=== PATIENT | female | born 1940 | race Caucasian/White ===

== ENCOUNTER 2018-02-19 06:54 | Observation (INO) | payer OTHER ==
[2018-02-19] VITALS (7 sets, daily range): BP systolic 113–142; BP diastolic 56–65
[~2018-02-19] VITALS: Ht 152.4 cm; Wt 63.0 kg
[~2018-02-19 06:54] MED LIST: AMLODIPINE BESY10 MG PO; ATENOLOL50 MG PO; ATORVASTATIN CA20 MG PO; BACITRACIN 50,000 UNIT VIAL ONE; BUSPIRONE HCL5 MG PO; CEFAZOLIN SOD 2 GM/D5W 50ML 50 ML IV ONE; CELECOXIB 200 MG CAP ONE; CITALOPRAM HBR20 MG PO; DEXAMETHASONE SOD PHOS 10 MG/1 ML VIAL ONE; GABAPENTIN 300 MG CAP ONE; GEMFIBROZIL600 MG PO; LOSARTAN-HCTZ1 EAC1 PO; MUPIROCIN 2% OINT 22 GM TUBE ONE; NOVOLOG100 UNITS1 SC; ROPINIROLE HCL0.5 MG PO; SYNTHROID125 MCG PO; TOUJEO SC; TRANEXAMIC ACID 1,000 MG/10 ML ML ONE; TRAZODONE HCL50 MG PO; ULTRAM 50MG50 MG PO
[2018-02-19] MEDS ORDERED: INSULIN REGULAR, HUMAN 100 UNIT/1 ML 3ML VIAL ONE ×3 (07:40→09:34)
[2018-02-19] MEDS ORDERED: ROPIVACAINE 246.25 MG, EPINEPHRINE HCL 1:1000 0.5 MG, CLONIDINE HCL 0.08 MG, KETOROLAC ... INJ ONE ×5 (08:00)
[2018-02-19] MEDS ORDERED: ACETAMINOPHEN 650 MG SUPP PR PRN (09:30)
[2018-02-19] MEDS ORDERED: KETOROLAC TROMETHAMINE 30 MG/ML VIAL IV PRN (09:30)
[2018-02-19] MEDS ORDERED: PROMETHAZINE HCL (IM) 25 MG/ML VIAL IM PRN (09:30)
[2018-02-19] MEDS ORDERED: ONDANSETRON HCL INJ 2 MG/ML VIAL IV PRN (09:30)
[2018-02-19] MEDS ORDERED: DOCUSATE SODIUM 100 MG CAP PO PRN (09:30)
[2018-02-19] MEDS ORDERED: DIPHENHYDRAMINE HCL INJ 50 MG/ML VIAL IM/IV PRN (09:30)
--- NOTE | 2018-02-19 09:50 | Diagnostic Imaging Report ---
PROCEDURE: X-RAY RIGHT KNEE, ONE OR TWO VIEWS COMPARISON: None. INDICATIONS:STATUS POST RIGHT KNEE SURGERY FINDINGS: See conclusion. CONCLUSION: Status post total right knee replacement with surrounding soft tissue swelling, air and beto consistent with recent surgery. No periprosthetic displaced fractures. Dictated by: Jack Galdamez M.D. on 02/19/2018 at 9:54 Electronically approved by: Jack Galdamez M.D. on 02/19/2018 at 9:54
[2018-02-19] MEDS: HYDROCODONE/APAP 7.5MG-325MG 1 EA TAB PO PRN (11:10)
[2018-02-19] MEDS ORDERED: DEXTROSE 50% SYRINGE 50 ML IV PRN (12:15)
[2018-02-19] MEDS: INSULIN LISPRO 100 UNIT/1 ML 3ML VIAL SQ SCH ×3 (12:20→22:00)
[2018-02-19] MEDS: ACETAMINOPHEN 1000 MG/100 ML IV SCH ×2 (12:21→18:35)
[2018-02-19] MEDS: SODIUM CHLORIDE 0.9% 1000ML 1,000 ML IV SCH ×2 (12:21→20:00)
--- NOTE | 2018-02-19 13:17 | Operative Report ---
DATE OF PROCEDURE: February 19, 2018 TIN ASSORTER: Mohan Wu PA-C The patient was brought to the operating room for induction of anesthesia. Throughout this case, my PA's assistance was necessary for retraction of soft tissue and positioning of the extremity. This allows for efficient and technically successful execution of the operation and is considered medically necessary. PREOPERATIVE DIAGNOSIS: Osteoarthritis, right knee. POSTOPERATIVE DIAGNOSIS: Osteoarthritis, right knee. PROCEDURE: Right total knee arthroplasty. INDICATIONS: The patient is a 77-year-old lady with end-stage arthritis of her right knee. She has failed conservative management and would like to proceed with a right total knee replacement. The risks and benefits have been explained. She states she understands and wishes to proceed. DESCRIPTION OF PROCEDURE: The patient was brought to the operating room and placed under general anesthetic. She received prophylactic antibiotics, a regional block and tranexamic acid in the holding area. Her right lower extremity was prepped and draped in a sterile manner. A preoperative time out was performed. The extremity was exsanguinated, and a proximal tourniquet was inflated to 300 mmHg. An anterior approach with a medial parapatellar arthrotomy was performed. Soft-tissue releases were performed to bring the knee up into flexion with the patella everted. Meniscal remnants, marginal osteophytes and the cruciate ligaments were sacrificed. A [employer] Jessica II posterior stabilized knee system was used throughout the case. An extramedullary cutting guide was used to resect the proximal tibia. The tibial baseplate was a size number 3. The central fin punch was impacted, and attention was directed towards the distal femur. An intramedullary cutting guide was used to resect the distal femur in 6 degrees of valgus and rotation referenced off a combination of landmarks including [place]'s line, the epicondylar axis and the posterior condyles. The femoral component was a size number 5. The anterior and posterior cuts were made. Trial reductions were performed. A 9-mm ultracongruent tibial insert provided optimal soft-tissue balancing in flexion and extension. The patella was resurfaced with a 29-mm x 7.5-mm patellar button. The thickness was checked before and after and was right at 22 mm. Patellar tracking was noted to be concentric. The trial implants were removed. A 100 mL premixed pericapsular injection was placed into the surrounding soft tissue. The knee was thoroughly irrigated with a shower-tip pulsatile lavage. The components were then cemented into place using a single mix of [place] cement preloaded with antibiotics. Care was taken to remove extravasated cement. The wound was further irrigated while the cement cured. The arthrotomy was then closed with interrupted #1 Ethibond. The knee was put through flexion and extension to ensure a secure closure. The skin was closed with subcuticular Vicryl and beto. A sterile bandage was applied. The patient was extubated and transported to the recovery room in stable condition. Job#: [id number]
[2018-02-19] MEDS: CEFAZOLIN SOD 1 GM VIAL IV SCH ×2 (13:59→22:24)
[2018-02-19] MEDS ORDERED: CEFAZOLIN SOD 1 GM/NS 50ML 50 ML IV SCH (14:00)
[2018-02-19] MEDS ORDERED: MIDAZOLAM HCL 2 MG/2 ML VIAL ONE (16:09)
[2018-02-19] MEDS ORDERED: MORPHINE SULFATE INJ 10 MG/ML ONE (16:09)
[2018-02-19] MEDS ORDERED: FENTANYL CITRATE/PF 100MCG/2 ML INJ ONE (16:09)
[2018-02-19] MEDS ORDERED: CELECOXIB 100 MG CAP PO SCH (17:00)
[2018-02-19] MEDS: BUSPIRONE HCL 5 MG TAB PO SCH (17:04)
[2018-02-19] MEDS: ASPIRIN 325 MG TAB PO SCH (17:04)
[2018-02-19] MEDS: GEMFIBROZIL 600 MG TAB PO SCH (17:05)
--- NOTE | 2018-02-19 17:47 | Diagnostic Imaging Report ---
Examination: Single AP view of the chest. COMPARISON: Chest 2 views 01/16/2008 INDICATION: Food aspiration IMPRESSION: 1. Lines and Tubes: None 2. Lungs are grossly clear. No consolidation or effusion. 3. Cardiomediastinal silhouette is normal. Pulmonary vasculature is normal. 4. No acute bony abnormalities. Signed by: Dr. Bill Marx M.D. on 02/19/2018 5:43 PM
[2018-02-19] MEDS ORDERED: SEVOFLURANE INHAL SOLN 250 ML PEN BTL ONE (17:53)
[2018-02-19] MEDS ORDERED: ONDANSETRON HCL INJ 2 MG/ML VIAL ONE (17:53)
[2018-02-19] MEDS ORDERED: LIDOCAINE HCL 2% LOCAL INJ 5 ML SDV VIAL INJ ONE (17:53)
[2018-02-19] MEDS ORDERED: EPHEDRINE SULFATE INJ 50 MG/10 ML SYR ONE (17:53)
[2018-02-19] MEDS ORDERED: LABETALOL HCL 5 MG/ML 20ML VIAL ONE (17:53)
[2018-02-19] MEDS ORDERED: PROPOFOL IV EMULSION 10 MG/ML 20 ML VIAL ONE (17:53)
[2018-02-19] MEDS ORDERED: ACETAMINOPHEN 1000 MG/100 ML IV ONE (17:53)
[2018-02-19] MEDS ORDERED: ROPIVACAINE 0.5% 5 MG/ML 30 ML SDV ONE (18:17)
[2018-02-19] MEDS ORDERED: LIDOCAINE 2% /EPINEPHRINE 20 ML SDV INJ ONE (18:17)
[2018-02-19] MEDS ORDERED: ATORVASTATIN 20 MG TAB PO SCH (21:00)
[2018-02-19] MEDS ORDERED: ZOLPIDEM TARTRATE 5 MG TAB PO PRN (21:00)
[2018-02-20] VITALS: BP 149/65
[2018-02-20] MEDS: ACETAMINOPHEN 1000 MG/100 ML IV SCH ×2 (00:10→05:30)
[2018-02-20 04:18] VITALS: BP 158/68
[2018-02-20] MEDS: CEFAZOLIN SOD 1 GM VIAL IV SCH (05:32)
[2018-02-20] MEDS ORDERED: LEVOTHYROXINE SODIUM 125 MCG TAB PO SCH (06:30)
[2018-02-20 06:50] LABS: HEMATOCRIT 34.1 % (34.2-44.1); HEMOGLOBIN 11.8 g/dL (12.0-16.0)
[2018-02-20] MEDS: HYDROCODONE/APAP 5MG-325MG TAB PO PRN ×2 (07:14→11:13)
[2018-02-20] MEDS: INSULIN LISPRO 100 UNIT/1 ML 3ML VIAL SQ SCH ×2 (07:30→12:34)
[2018-02-20 07:58] VITALS: BP 147/77
[2018-02-20 08:24] VITALS: BP 147/77
[2018-02-20] MEDS: BUSPIRONE HCL 5 MG TAB PO SCH (08:24)
[2018-02-20] MEDS: ASPIRIN 325 MG TAB PO SCH (08:24)
[2018-02-20] MEDS: GEMFIBROZIL 600 MG TAB PO SCH (08:24)
[2018-02-20] MEDS ORDERED: ASPIRIN325 MG PO (08:55)
[2018-02-20] MEDS ORDERED: ATENOLOL 50 MG TAB PO SCH (09:00)
[2018-02-20] MEDS ORDERED: CITALOPRAM HYDROBROMIDE 20 MG TAB PO SCH (09:00)
[2018-02-20] MEDS ORDERED: CELECOXIB 200 MG CAP PO SCH (09:00)
[2018-02-20] MEDS ORDERED: TRAZODONE HCL 50 MG TAB PO SCH (09:00)
[2018-02-20] MEDS ORDERED: AMLODIPINE BESYLATE 10 MG TAB PO SCH (09:00)
[2018-02-20] MEDS ORDERED: ACETAMINOPHEN 1000 MG/100 ML IV PRN (09:30)
--- NOTE | 2018-02-20 10:57 | Discharge Summary ---
CHIEF COMPLAINT: Right knee pain. HISTORY OF PRESENT ILLNESS: This patient is a 77-year-old female who complains of right knee pain off and on for many years. She states the pain has gotten progressively worse over the last year. She has tried anti-inflammatories as well as cortisone injections without lasting relief. Her x-rays are consistent with end-stage osteoarthritis of the right knee. She presents wanting to consider a right total knee replacement. The risks and benefits of the procedure were explained. The patient states she understands and wishes to proceed. HOSPITAL COURSE: The patient underwent a right total knee replacement without complications. She was then transferred to the recovery room and the floor in stable condition. She was followed by Dr. Altman for postop medical management. She remained medically stable throughout her hospital stay. She progressed nicely with physical therapy. She was able to be discharged home on postop day 1. PRINCIPAL DIAGNOSIS: Osteoarthritis of the right knee. PRINCIPAL PROCEDURE: Right total knee replacement. DISCHARGE INSTRUCTIONS: The patient was discharged home with home health and physical therapy arranged. She was to be weightbearing as tolerated with a rolling walker. She was to use her CPM machine as she did in the hospital. She was to resume her home medications as directed. She was to take aspirin twice a day for 3 weeks for thromboprophylaxis. She was instructed to follow up in our office in roughly 8 to 10 days. Dictated by: Mohan Wu PA-C JONO FELIX MD Job#: [id number]
[2018-02-20 12:53] VITALS: BP 137/72
[2018-02-20] MEDS ORDERED: SENNA LAXATIVE1 EACH PO (15:16)
[2018-02-20] MEDS ORDERED: CELEBREX50 MG PO (15:16)
[2018-02-20] MEDS ORDERED: ZOFRAN ODT4 MG SL (15:17)
[2018-02-20] MEDS ORDERED: NORCO 7.5-3251 EACH PO (15:18)
[2018-02-20] MEDS: HYDROCODONE/APAP 7.5MG-325MG 1 EA TAB PO PRN (15:29)
[2018-02-20] MEDS ORDERED: ATORVASTATIN 40 MG TAB PO SCH (21:00)
== END 2018-02-20 15:46 | disposition home or self-care (01) ==
LOC: OR 06:54 → PACU V 09:19 → INTOOBSV 09:19 → MED/SURG 10:15
PROVIDERS: ADMIT Specialist; ATTEND Specialist
DX: M17.11 Unilateral primary osteoarthritis, right knee (principal); E11.9 Type 2 diabetes mellitus without complications; E78.5 Hyperlipidemia, unspecified; E03.9 Hypothyroidism, unspecified; Z85.3 Personal history of malignant neoplasm of breast; E66.9 Obesity, unspecified; I10 Essential (primary) hypertension; D64.9 Anemia, unspecified; Z68.27 Body mass index [BMI] 27.0-27.9, adult
CPT/HCPCS: 27447; 36415 ×2; 71045; 73560; 82948 ×2; 85014; 85018; 86850; 86900; 86920; 97116; 97139; 97161; 97530; C1713; G0378 ×2; G8978; G8979; J0171; J0690 ×2; J1100; J1885; J2001 ×2; J2250; J2270; J2405; J2795; J3490; J7030

== ENCOUNTER 2018-02-21 06:41 | Emergency (ER) | payer OTHER ==
[~2018-02-21] VITALS: Ht 304.8 cm; Wt 63.0 kg
[~2018-02-21 06:41] MED LIST changes: +ASPIRIN325 MG PO; -BACITRACIN 50,000 UNIT VIAL ONE; -CEFAZOLIN SOD 2 GM/D5W 50ML 50 ML IV ONE; +CELEBREX50 MG PO; -CELECOXIB 200 MG CAP ONE; -DEXAMETHASONE SOD PHOS 10 MG/1 ML VIAL ONE; -GABAPENTIN 300 MG CAP ONE; -MUPIROCIN 2% OINT 22 GM TUBE ONE; +NORCO 7.5-3251 EACH PO; +SENNA LAXATIVE1 EACH PO; -TRANEXAMIC ACID 1,000 MG/10 ML ML ONE; +ZOFRAN ODT4 MG SL
[2018-02-21] MEDS ORDERED: HYDROMORPHONE 1MG/1ML INJ IV ONE (08:00)
[2018-02-21] MEDS ORDERED: HYDROMORPHONE 2MG/ML INJ IM ONE (08:00)
[2018-02-21] MEDS ORDERED: ONDANSETRON HCL 4 MG ORAL DISINTEGRATING TAB PO ONE (08:00)
[2018-02-21 09:02] VITALS: BP 130/79
== END 2018-02-21 09:12 | disposition home or self-care (01) ==
LOC: ER 06:41
DX: M25.561 Pain in right knee (principal); R26.2 Difficulty in walking, not elsewhere classified; I10 Essential (primary) hypertension; E11.9 Type 2 diabetes mellitus without complications; E03.9 Hypothyroidism, unspecified; Z96.651 Presence of right artificial knee joint
CPT/HCPCS: 99283; J1170

== ENCOUNTER 2018-02-22 12:37 | Inpatient (IN) | payer OTHER ==
[~2018-02-22] VITALS: Ht 152.4 cm; Wt 62.4 kg
[2018-02-22 14:22] LABS: BASOPHILS % 0.1 % (0.0-1.0); EOSINOPHILS # (AUTO) 0.2 (0.0-0.4); EOSINOPHILS % 1.7 % (0.0-6.0); HEMOGLOBIN 14.6 g/dL (12.0-16.0); LYMPHOCYTES # (AUTO) 1.1 (1.0-3.2); LYMPHOCYTES % 8.1 % (18.0-39.1); MEAN CORPUSCULAR HEMOGLOBIN 33.3 pg (28-32); MEAN CORPUSCULAR HGB CONC 35.6 g/dL (31-35); MEAN CORPUSCULAR VOLUME 93.4 fL (81-99); MONOCYTES # (AUTO) 1.1 (0.2-0.8); MONOCYTES % 8.4 % (4.4-11.3); NEUTROPHILS # (AUTO) 10.8 (2.1-6.9); NEUTROPHILS % 81.1 % (38.7-80.0); PLATELET COUNT 249 x10e3/uL (140-360); RED BLOOD COUNT 4.39 x10e6/uL (3.6-5.1); RED CELL DISTRIBUTION WIDTH 12.2 % (11.7-14.4)
[2018-02-22] MEDS ORDERED: SODIUM CHLORIDE 0.9% 1000ML 1,000 ML IV STA (14:23)
[2018-02-22] MEDS ORDERED: VANCOMYCIN 1GM/NS 250 ML 250 ML IV STA (14:23)
[2018-02-22 14:43] LABS: ANION GAP 18.9 mmol/L (8-16); CALCIUM 10.5 mg/dL (8.4-10.2); CREATININE, SERUM 1.13 mg/dL (0.57-1.11); MAGNESIUM 1.9 MG/DL (1.3-2.1); POTASSIUM 3.9 mmol/L (3.5-5.1)
[2018-02-22] MEDS ORDERED: DEXTROSE 50% SYRINGE 50 ML IV PRN (16:15)
[2018-02-22] MEDS: SODIUM CHLORIDE 0.9% 1000ML 1,000 ML IV SCH ×2 (16:25→18:11)
[2018-02-22 17:08] LABS: BILIRUBIN,URINE NEGATIVE (NEGATIVE); CLARITY,URINE SL CLOUDY (CLEAR); COLOR,URINE STRAW (YELLOW); KETONES,URINE TRACE (NEGATIVE); LEUKOCYTE ESTERASE ,URINE NEGATIVE (NEGATIVE); NITRITE,URINE NEGATIVE (NEGATIVE); PROTEIN,URINE DIPSTICK NEGATIVE (NEGATIVE); URINE UROBILINOGEN 0.2 mg/dL (0.2 - 1)
[2018-02-22 17:27] LABS: EPITHELIAL CELLS,URINE MANY /LPF; TRANSITIONAL EPI CELLS,URINE MANY
[2018-02-22 17:28] LABS: BACTERIA,URINE FEW /HPF; RBC,URINE 0-5 /HPF (0-5); WBC,URINE (MAN) 0-5 /HPF (0-5)
[2018-02-22 17:30] VITALS: BP 189/117
[2018-02-22 17:49] VITALS: BP 180/117
[2018-02-22] MEDS: ONDANSETRON HCL INJ 2 MG/ML VIAL IV PRN ×2 (18:10→23:20)
[2018-02-22] MEDS: MORPHINE SULFATE 2 MG/ML SYR IV PRN ×2 (18:10→23:24)
[2018-02-22] MEDS: INSULIN REGULAR, HUMAN 100 UNIT/1 ML 3ML VIAL SQ SCH ×2 (18:11→21:10)
[2018-02-22 20:00] VITALS: BP 136/78
[2018-02-22 21:10] VITALS: BP 136/78
[2018-02-23] VITALS (8 sets, daily range): BP systolic 125–179; BP diastolic 62–108
[2018-02-23] MEDS ORDERED: VANCOMYCIN 1GM/NS 250 ML 250 ML IV SCH (03:00)
[2018-02-23 05:51] LABS: BASOPHILS % 0.1 % (0.0-1.0); EOSINOPHILS # (AUTO) 0.8 (0.0-0.4); EOSINOPHILS % 8.7 % (0.0-6.0); HEMATOCRIT 34.9 % (34.2-44.1); HEMOGLOBIN 12.6 g/dL (12.0-16.0); LYMPHOCYTES # (AUTO) 1.5 (1.0-3.2); LYMPHOCYTES % 16.3 % (18.0-39.1); MEAN CORPUSCULAR HEMOGLOBIN 33.2 pg (28-32); MEAN CORPUSCULAR HGB CONC 36.1 g/dL (31-35); MEAN CORPUSCULAR VOLUME 92.1 fL (81-99); MONOCYTES # (AUTO) 0.9 (0.2-0.8); MONOCYTES % 9.5 % (4.4-11.3); NEUTROPHILS % 65.1 % (38.7-80.0); PLATELET COUNT 202 x10e3/uL (140-360); RED BLOOD COUNT 3.79 x10e6/uL (3.6-5.1); RED CELL DISTRIBUTION WIDTH 12.4 % (11.7-14.4)
[2018-02-23 06:09] LABS: ANION GAP 13.6 mmol/L (8-16); BLOOD UREA NITROGEN 26 mg/dL (7-26); BUN/CREATININE RATIO 38 (6-25); CALCIUM 8.5 mg/dL (8.4-10.2); CARBON DIOXIDE 21 mmol/L (22-29); CHLORIDE 109 mmol/L (98-107); CREATININE, SERUM 0.69 mg/dL (0.57-1.11); EST GLOMERULAR FILTRATION RATE > 60 ML/MIN (60-); GLUCOSE 172 mg/dL (74-118); POTASSIUM 3.6 mmol/L (3.5-5.1); SODIUM 140 mmol/L (136-145)
[2018-02-23] MEDS: INSULIN REGULAR, HUMAN 100 UNIT/1 ML 3ML VIAL SQ SCH ×4 (07:30→21:00)
[2018-02-23] MEDS ORDERED: TRAMADOL HCL 50 MG TAB PO SCH (07:45)
[2018-02-23] MEDS ORDERED: ASPIRIN 325 MG TAB PO SCH (09:00)
[2018-02-23] MEDS ORDERED: LOSARTAN POTASSIUM 100 MG TAB PO SCH (09:00)
[2018-02-23] MEDS ORDERED: ASPIRIN 81 MG ENTERIC COATED PO SCH (09:00)
[2018-02-23] MEDS ORDERED: NON-FORMULARY MEDICATION (Losartan/Hydrochlorothiazide (Losartan-Hctz 100-25 Mg Tab) 1 TAB PO SCH (09:00)
[2018-02-23] MEDS ORDERED: TRAZODONE HCL 50 MG TAB PO SCH (09:00)
[2018-02-23] MEDS ORDERED: HYDROCHLOROTHIAZIDE 25 MG TAB PO SCH (09:00)
[2018-02-23] MEDS ORDERED: GEMFIBROZIL 600 MG TAB PO SCH (09:00)
[2018-02-23] MEDS: BUSPIRONE HCL 5 MG TAB PO SCH ×2 (09:00→17:13)
[2018-02-23] MEDS: CITALOPRAM HYDROBROMIDE 20 MG TAB PO SCH (09:00)
[2018-02-23] MEDS ORDERED: NON-FORMULARY MEDICATION (Ropinirole Hcl 0.5 MG) PO SCH (09:00)
[2018-02-23] MEDS ORDERED: ATENOLOL 50 MG TAB PO SCH (09:00)
[2018-02-23] MEDS ORDERED: ROPINIROLE HCL 0.25 MG TAB PO SCH (09:00)
[2018-02-23] MEDS: AMLODIPINE BESYLATE 10 MG TAB PO SCH (09:01)
[2018-02-23] MEDS: SENNOSIDES 8.6 MG TAB PO SCH ×2 (09:01→17:14)
[2018-02-23] MEDS ORDERED: HYDRALAZINE HCL 20 MG/ML VIAL IV PRN (11:15)
[2018-02-23] MEDS: SODIUM CHLORIDE 0.45% 1,000 ML IV SCH ×2 (11:45→20:45)
[2018-02-23] MEDS: FAMOTIDINE 20 MG/2 ML VIAL IV SCH ×2 (11:45→17:14)
[2018-02-23] MEDS: METOPROLOL TARTRATE 50 MG TAB PO SCH ×2 (11:46→17:00)
[2018-02-23] MEDS: RIVAROXABAN 10 MG TABLET PO SCH ×2 (11:46→17:14)
[2018-02-23] MEDS ORDERED: METOPROLOL TARTRATE INJ 1 MG/ML VIAL IV PRN (12:30)
--- NOTE | 2018-02-23 13:06 | History and Physical ---
CHIEF COMPLAINT 1. Intractable nausea and vomiting and dehydration. 2. Right knee post surgery. HISTORY: Patient is a 77-year-old female who had right knee replacement approximately 4 or 5 days ago. The patient came in with increasing severe nausea and vomiting, dry feces for the past few days. The patient was dehydrated. She received IV fluid. She did better. She is very anxious. Her heart rate in the 130 to 140 and EKG showed possible atrial flutter and atrial fibrillation. The patient is otherwise stable at this time. PAST MEDICAL HISTORY: Dyslipidemia, diabetes type 2, hypothyroidism, major depression, anxiety disorder, dyslipidemia, and breast cancer. PAST SURGICAL HISTORY: Partial left mastectomy. Right knee replacement. Hysterectomy. SOCIAL HISTORY: Patient does not smoke or use alcohol. No recreational drugs. ALLERGIES: NO KNOWN ALLERGY. HOME MEDICATIONS: Aspirin, atenolol, gemfibrozil, Lipitor, tramadol, Requip, Celexa, trazodone, levothyroxine, losartan, HCTZ, buspirone, Norvasc, insulin, Celebrex, sennoside plus, Zofran, and [place]. PHYSICAL EXAMINATION VITAL SIGNS: Temperature is 98, blood pressure 179/108, pulse rate is 130, respirations 20. GENERAL: The patient is anxious, but is not in any distress. HEENT: Normocephalic, atraumatic, and anicteric. NECK: Supple grossly. PULMONARY: Diminished breath sounds. CARDIOVASCULAR: Atrial fibrillation/atrial flutter with rapid rate. ABDOMEN: Soft. Generalized discomfort. No rebound or guarding. EXTREMITIES: No gross cyanosis or edema. Right knee replacement, please review orthopedic noted. NEUROLOGIC: No focal deficit. LABORATORY: Sodium 140, potassium 3.6, chloride 109, bicarb 21, BUN 26, creatinine 0.7 glucose 173. WBC is 9.2, hemoglobin 12.6, hematocrit 35, platelets 202. IMPRESSION 1. Intractable nausea and vomiting. 2. Cardiac arrhythmia with atrial fibrillation/atrial flutter. 3. Post right knee replacement approximately postoperative day #4. 4. Multiple chronic baseline problems. 5. Diabetes type 2, on insulin therapy. 6. Hypertension. 7. Dyslipidemia. 8. Anxiety. 9. Depression. PLAN: Home medication adjustment and resume. Consultation with Dr. Sanders this time. A 2D echocardiogram. Rate control medication. Rehydration. Pain control. Consultation with Dr. Nunn. Continue with home medication with adjustment. Job#: [id number] MONAE
[2018-02-23 13:25] LABS: CHOL/HDL RATIO 5.2 (3.0-3.6)
[2018-02-23] MEDS: METOPROLOL TARTRATE 25 MG TAB PO SCH (17:14)
[2018-02-23] MEDS: ROPINIROLE HCL 0.25 MG TAB PO SCH (20:44)
[2018-02-23] MEDS: TRAZODONE HCL 50 MG TAB PO SCH (20:45)
[2018-02-23] MEDS: HYDROCODONE/APAP 7.5MG-325MG 1 EA TAB PO PRN (20:57)
[2018-02-23] MEDS ORDERED: ATORVASTATIN 20 MG TAB PO SCH (21:00)
[2018-02-24] VITALS (9 sets, daily range): BP systolic 118–159; BP diastolic 62–80
[2018-02-24] MEDS: METOPROLOL TARTRATE 25 MG TAB PO SCH ×4 (00:40→17:51)
[2018-02-24] MEDS: LEVOTHYROXINE SODIUM 125 MCG TAB PO SCH (06:00)
[2018-02-24 06:01] LABS: BASOPHILS % 0.2 % (0.0-1.0); EOSINOPHILS # (AUTO) 0.9 (0.0-0.4); EOSINOPHILS % 11.1 % (0.0-6.0); HEMATOCRIT 30.6 % (34.2-44.1); HEMOGLOBIN 10.9 g/dL (12.0-16.0); LYMPHOCYTES # (AUTO) 1.7 (1.0-3.2); LYMPHOCYTES % 19.7 % (18.0-39.1); MEAN CORPUSCULAR HEMOGLOBIN 33.5 pg (28-32); MEAN CORPUSCULAR HGB CONC 35.6 g/dL (31-35); MEAN CORPUSCULAR VOLUME 94.2 fL (81-99); MONOCYTES # (AUTO) 0.7 (0.2-0.8); NEUTROPHILS # (AUTO) 5.2 (2.1-6.9); NEUTROPHILS % 60.6 % (38.7-80.0); PLATELET COUNT 202 x10e3/uL (140-360); RED BLOOD COUNT 3.25 x10e6/uL (3.6-5.1); RED CELL DISTRIBUTION WIDTH 12.4 % (11.7-14.4)
[2018-02-24 06:17] LABS: ANION GAP 13.6 mmol/L (8-16); BLOOD UREA NITROGEN 19 mg/dL (7-26); BUN/CREATININE RATIO 27 (6-25); CALCIUM 9.2 mg/dL (8.4-10.2); CARBON DIOXIDE 22 mmol/L (22-29); CHLORIDE 108 mmol/L (98-107); EST GLOMERULAR FILTRATION RATE > 60 ML/MIN (60-); GLUCOSE 164 mg/dL (74-118); POTASSIUM 3.6 mmol/L (3.5-5.1); SODIUM 140 mmol/L (136-145)
[2018-02-24] MEDS: SODIUM CHLORIDE 0.45% 1,000 ML IV SCH ×3 (07:15→17:15)
[2018-02-24] MEDS: AMLODIPINE BESYLATE 10 MG TAB PO SCH (08:03)
[2018-02-24] MEDS: CITALOPRAM HYDROBROMIDE 20 MG TAB PO SCH (08:03)
[2018-02-24] MEDS: BUSPIRONE HCL 5 MG TAB PO SCH ×2 (08:03→17:00)
[2018-02-24] MEDS: RIVAROXABAN 10 MG TABLET PO SCH ×2 (08:03→17:00)
[2018-02-24] MEDS: SENNOSIDES 8.6 MG TAB PO SCH ×2 (08:03→17:00)
[2018-02-24] MEDS: FAMOTIDINE 20 MG/2 ML VIAL IV SCH ×2 (08:03→17:00)
[2018-02-24] MEDS: INSULIN REGULAR, HUMAN 100 UNIT/1 ML 3ML VIAL SQ SCH ×4 (08:05→20:41)
--- NOTE | 2018-02-24 08:58 | Consultation ---
DATE OF CONSULTATION: February 23, 2018 CARDIOLOGY CONSULTATION REQUESTING PHYSICIAN: Dr. Altman REASON FOR CONSULTATION: Atrial fibrillation. HISTORY OF PRESENT ILLNESS: Ms. La is a 77-year-old lady with a past medical history as listed below. She recently underwent right knee surgery. The patient was subsequently discharged home. The patient states she was getting very nauseous and heaving repeatedly, so she came to the emergency room. The patient was given Zofran and some pain medication and discharged. She went and saw her PCP for the same problems. She reportedly was given Phenergan and then sent to the emergency room again. The patient was admitted. She states she feels a little bit better. Denies any chest pain, shortness of breath or palpitations. Reportedly she was told to have irregular heartbeat several years back but has not really taken any anticoagulants. She was on aspirin. On her EKG, the patient was noted to have atrial fibrillation with rapid ventricular rate. REVIEW OF SYMPTOMS CONSTITUTIONAL: Has some fatigue and weakness. HEENT: No headache, blurring of vision, seizures, syncope. CARDIOVASCULAR: No chest pain, dyspnea, orthopnea, PND. RESPIRATORY: No cough, fever or expectoration. GI: No abdominal pain, vomiting or diarrhea. : No dysuria, frequency, incontinence. ALLERGIES: NO KNOWN DRUG ALLERGIES. MEDICATIONS: See list. PAST MEDICAL HISTORY 1. History of hypertension. 2. History of diabetes mellitus. 3. History of hyperlipidemia. 4. History of breast cancer. 5. History of hypothyroidism. SOCIAL HISTORY: Does not smoke or drink. PAST SURGICAL HISTORY 1. History of knee surgery. 2. History of partial mastectomy of left breast. FAMILY HISTORY: Noncontributory. PHYSICAL EXAMINATION GENERAL: Well built and nourished lady. Alert, oriented, not in any obvious distress. VITALS: Heart rate is in the 120s to 130s. Blood pressure is 179/108. Respiratory rate is 18. HEENT: Atraumatic. NECK: No JVD, bruit, thyromegaly, lymphadenopathy. CARDIOVASCULAR: First and second heart sounds heard. No murmurs, rubs or gallops appreciated. CHEST: Decreased air entry at the bases. No adventitious sounds appreciated. ABDOMEN: Soft, nontender. EXTREMITIES: Trace edema. LABS: WBC 9.1, hemoglobin 12.6, hematocrit 34.9, platelets are 202. Sodium is 140, potassium 3.6, chloride 109, bicarb 21, BUN 26, creatinine 0.6. Glucose 172. Troponin 0.004. EKG showed atrial fibrillation at 139 beats per minute, leftward axis, LVH, nonspecific ST-T changes. IMPRESSION 1. Atrial fibrillation with rapid ventricular rate. 2. Recent right knee replacement. 3. Accelerated hypertension. 4. Diabetes mellitus. 5. History of breast cancer. 6. History of hyperlipidemia. 7. History of hypothyroidism. PLAN 1. Will start the patient on IV and p.o. metoprolol for rate control. 2. Patient is currently on Xarelto 10 mg b.i.d., can continue the same. 3. Will check D-dimer and venous Doppler of her legs. 4. Get echocardiogram to assess LV function and valvular function. Patient has no chest pain or shortness of breath. 5. Further cardiac workup depending on clinical course. 6. I discussed my impression and plan of management with the patient, and she understands it. As always, I appreciate and thank you very much for your referrals. Job#: [id number]
[2018-02-24] MEDS ORDERED: CEFAZOLIN SOD 1 GM/D5W 50ML 50 ML IV SCH (09:15)
[2018-02-24] MEDS: CEFAZOLIN SOD 1 GM VIAL IV SCH ×3 (09:49→21:44)
[2018-02-24] MEDS: HYDROCODONE/APAP 7.5MG-325MG 1 EA TAB PO PRN ×2 (10:00→17:10)
--- NOTE | 2018-02-24 16:12 | Diagnostic Imaging Report ---
EXAM: CT Chest WITH contrast 02/24/2018 11:07 AM INDICATION: \S\RULE OUT PE \S\[id number] \S\1502 \S\Y COMPARISON: Chest radiograph 01/16/2008 TECHNIQUE: Spiral CT images of the chest were performed from the lung apices through the level of the adrenal glands after the IV contrast administration. Thin section reconstructions were obtained with special concentration on the pulmonary arteries. IV CONTRAST: 100 mL of Isovue-370 ORAL CONTRAST: None COMPLICATIONS: The patient experienced some redness at the IV site likely due to minimal contrast extravasation (likely less than 10 cc). RADIATION DOSE: Total DLP: 413.3 mGy*cm Estimated effective dose: (DLP x 0.015 x size factor) mSv CTDIvol has been reviewed. It is below the limits set by the Radiation Protocol Committee (RPC). FINDINGS: LINES/ TUBES: None. PULMONARY ARTERIES: No filling defects are identified in the main, right or left pulmonary arteries to their segmental and subsegmental levels, to suggest pulmonary embolism. The main pulmonary artery is normal in size, measuring 2.6 cm in diameter. LUNGS AND AIRWAYS: Left lower lobe calcified granuloma. Minimal atelectasis in both lung bases. No consolidations or suspicious pulmonary nodules. Airways are normal. PLEURA: The pleural spaces are clear. HEART AND MEDIASTINUM: The thyroid gland is normal. No mediastinal, hilar or axillary lymphadenopathy. The heart is normal in size. There is no pericardial effusion. The thoracic aorta is normal in caliber and associated with mild calcifications in the aortic root, aortic arch, and descending thoracic segment. UPPER ABDOMEN: 2 mm calcification in the gallbladder fossa with partial visualization of the gallbladder may represent a stone in the gallbladder neck. BONES: Moderate multilevel degenerative changes of the thoracic spine. SOFT TISSUES: Unremarkable. IMPRESSION: No pulmonary embolism. Unremarkable lungs. Signed by: Dr. Evelin Trevizo M.D. on 02/24/2018 4:08 PM
[2018-02-24] MEDS ORDERED: IOPAMIDOL 370 MG/ML 200 ML INFUS..BTL INJ ONE (16:14)
[2018-02-24] MEDS ORDERED: SODIUM CHLORIDE 0.9% 50ML 50 ML ONE (16:14)
[2018-02-24] MEDS: ROPINIROLE HCL 0.25 MG TAB PO SCH (20:40)
[2018-02-24] MEDS: TRAZODONE HCL 50 MG TAB PO SCH (20:40)
[2018-02-25] VITALS (9 sets, daily range): BP systolic 155–178; BP diastolic 63–80
[2018-02-25] MEDS: METOPROLOL TARTRATE 25 MG TAB PO SCH ×4 (00:14→17:13)
[2018-02-25] MEDS: SODIUM CHLORIDE 0.45% 1,000 ML IV SCH (03:15)
[2018-02-25] MEDS: CEFAZOLIN SOD 1 GM VIAL IV SCH (05:57)
[2018-02-25] MEDS: LEVOTHYROXINE SODIUM 125 MCG TAB PO SCH (05:58)
[2018-02-25] MEDS: INSULIN REGULAR, HUMAN 100 UNIT/1 ML 3ML VIAL SQ SCH ×4 (07:30→21:29)
[2018-02-25] MEDS: RIVAROXABAN 10 MG TABLET PO SCH ×2 (08:20→17:13)
[2018-02-25] MEDS: AMLODIPINE BESYLATE 10 MG TAB PO SCH (08:20)
[2018-02-25] MEDS: CITALOPRAM HYDROBROMIDE 20 MG TAB PO SCH (08:20)
[2018-02-25] MEDS: SENNOSIDES 8.6 MG TAB PO SCH ×2 (08:20→17:13)
[2018-02-25] MEDS: BUSPIRONE HCL 5 MG TAB PO SCH ×2 (08:20→17:13)
[2018-02-25] MEDS: FAMOTIDINE 20 MG/2 ML VIAL IV SCH (08:28)
[2018-02-25] MEDS ORDERED: METHYLPREDNISOLONE SOD SUCC 40 MG/ML VIAL IV NR (09:45)
[2018-02-25] MEDS: LORATADINE 10 MG TAB PO SCH (10:22)
[2018-02-25] MEDS: HYDROXYZINE HCL 25 MG TAB PO PRN (10:22)
[2018-02-25] MEDS: HYDROCODONE/APAP 7.5MG-325MG 1 EA TAB PO PRN ×2 (12:33→17:13)
[2018-02-25] MEDS: FAMOTIDINE 20 MG TAB PO SCH (17:13)
[2018-02-25] MEDS: ROPINIROLE HCL 0.25 MG TAB PO SCH (21:00)
[2018-02-25] MEDS: TRAZODONE HCL 50 MG TAB PO SCH (21:00)
[2018-02-26] VITALS: BP 167/76
[2018-02-26] MEDS: METOPROLOL TARTRATE 25 MG TAB PO SCH ×3 (00:35→11:00)
[2018-02-26 01:37] VITALS: BP 167/76
[2018-02-26 04:00] VITALS: BP 170/74
[2018-02-26] MEDS: LEVOTHYROXINE SODIUM 125 MCG TAB PO SCH (05:22)
[2018-02-26 06:26] LABS: BASOPHILS % 0.1 % (0.0-1.0); EOSINOPHILS # (AUTO) 0.6 (0.0-0.4); EOSINOPHILS % 6.2 % (0.0-6.0); HEMATOCRIT 31.5 % (34.2-44.1); HEMOGLOBIN 11.2 g/dL (12.0-16.0); LYMPHOCYTES # (AUTO) 1.6 (1.0-3.2); LYMPHOCYTES % 15.8 % (18.0-39.1); MEAN CORPUSCULAR HEMOGLOBIN 33.7 pg (28-32); MEAN CORPUSCULAR HGB CONC 35.6 g/dL (31-35); MEAN CORPUSCULAR VOLUME 94.9 fL (81-99); MONOCYTES # (AUTO) 0.8 (0.2-0.8); MONOCYTES % 7.3 % (4.4-11.3); NEUTROPHILS # (AUTO) 7.2 (2.1-6.9); PLATELET COUNT 245 x10e3/uL (140-360); RED BLOOD COUNT 3.32 x10e6/uL (3.6-5.1); RED CELL DISTRIBUTION WIDTH 12.6 % (11.7-14.4)
[2018-02-26 06:45] LABS: ANION GAP 12.6 mmol/L (8-16); BLOOD UREA NITROGEN 14 mg/dL (7-26); BUN/CREATININE RATIO 20 (6-25); CALCIUM 9.7 mg/dL (8.4-10.2); CARBON DIOXIDE 25 mmol/L (22-29); CHLORIDE 104 mmol/L (98-107); EST GLOMERULAR FILTRATION RATE > 60 ML/MIN (60-); GLUCOSE 185 mg/dL (74-118); POTASSIUM 3.6 mmol/L (3.5-5.1); SODIUM 138 mmol/L (136-145)
[2018-02-26] MEDS: INSULIN REGULAR, HUMAN 100 UNIT/1 ML 3ML VIAL SQ SCH ×2 (07:30→11:32)
[2018-02-26 08:00] VITALS: BP 155/76
[2018-02-26] MEDS: FAMOTIDINE 20 MG TAB PO SCH (08:06)
[2018-02-26] MEDS: BUSPIRONE HCL 5 MG TAB PO SCH (08:06)
[2018-02-26] MEDS: LORATADINE 10 MG TAB PO SCH (08:07)
[2018-02-26] MEDS: SENNOSIDES 8.6 MG TAB PO SCH (08:07)
[2018-02-26] MEDS: AMLODIPINE BESYLATE 10 MG TAB PO SCH (08:07)
[2018-02-26] MEDS: RIVAROXABAN 10 MG TABLET PO SCH (08:07)
[2018-02-26] MEDS: CITALOPRAM HYDROBROMIDE 20 MG TAB PO SCH (08:07)
[2018-02-26 08:23] VITALS: BP 155/76
[2018-02-26] MEDS ORDERED: atarax PO (09:21)
[2018-02-26] MEDS ORDERED: XARELTO20 MG PO (09:21)
[2018-02-26] MEDS ORDERED: claritin PO (09:22)
[2018-02-26] MEDS: HYDROXYZINE HCL 25 MG TAB PO PRN (11:35)
[2018-02-26 12:38] VITALS: BP 151/72
--- NOTE | 2018-02-26 13:38 | Discharge Summary ---
PRIMARY CARE PHYSICIAN: Dr. Tae Cruz. CONSULTANTS: Dr. Roni Carr. Dr. Jack Nunn. FINAL DIAGNOSES 1. Atrial fibrillation with rapid ventricular rate response, controlled now. 2. Generalized rash most likely drug reaction. 3. Status post recent right knee replacement. SUMMARY: This 77-year-old female came in with acute gastroenteritis. Patient is doing much better now. She was dehydrated. She did better. She does have generalized rash most likely from drug reaction. The patient is stable now. She is comfortable. She will go home today. Atrial fibrillation is rate controlled now. The patient was started on Xarelto 20 mg daily. The patient will follow up with Dr. Carr as an outpatient. She is comfortable. She needs to follow up with Dr. Tae Cruz this week for referral to manufacturing technology professor if the rash persists. DISCHARGE MEDICATIONS: Claritin, Atarax and Xarelto. Please review the prescription on discharge. Job#: [id number] DEE
== END 2018-02-26 11:57 | disposition home health service (06) | DRG 309 ==
LOC: ER 12:37 → ERHOLD 16:59 → MED/SURG2 17:45
PROVIDERS: ADMIT Internal Medicine; ATTEND Internal Medicine
DX: I48.91 Unspecified atrial fibrillation (principal); L03.115 Cellulitis of right lower limb; K52.9 Noninfective gastroenteritis and colitis, unspecified; R11.2 Nausea with vomiting, unspecified; I16.0 Hypertensive urgency; E86.0 Dehydration; E11.9 Type 2 diabetes mellitus without complications; E78.5 Hyperlipidemia, unspecified; E03.9 Hypothyroidism, unspecified; F41.9 Anxiety disorder, unspecified; Z85.3 Personal history of malignant neoplasm of breast; Z79.4 Long term (current) use of insulin; F32.9 Major depressive disorder, single episode, unspecified; Z96.651 Presence of right artificial knee joint; Z79.01 Long term (current) use of anticoagulants; L27.1 Localized skin eruption due to drugs and medicaments taken internally; T36.8X5A Adverse effect of other systemic antibiotics, initial encounter; Y92.230 Patient room in hospital as the place of occurrence of the external cause
CPT/HCPCS: 36415; 71260; 80048; 80053; 80061; 81001; 82150; 82550; 82553; 82607; 82746; 82948; 83036; 83690; 83735; 84443; 84484; 85025; 85379; 93005; 93306; 93970; 96372; 99284; J0690; J2270; J2405; J2920; J3370; J3410; J7030; Q9967

== ENCOUNTER 2023-12-18 21:54 | Emergency (ER) | payer MEDICARE ==
[~2023-12-18] VITALS: Ht 152.4 cm; Wt 52.2 kg
[~2023-12-18 21:54] MED LIST changes: +KETOROLAC TROMETHAMINE 30 MG/ML VIAL ONE; +Morphine 4mg INJECTION 4 MG/ML INJ ONE; +XARELTO20 MG PO; +atarax PO; +claritin PO
[2023-12-18] MEDS ORDERED: Morphine 4mg INJECTION 4 MG/ML INJ ONE (22:46)
[2023-12-18] MEDS ORDERED: KETOROLAC TROMETHAMINE 30 MG/ML VIAL ONE (22:46)
[2023-12-18] MEDS: KETOROLAC TROMETHAMINE 30 MG/ML VIAL IM STA (22:50)
[2023-12-18] MEDS: Morphine 4mg INJECTION 4 MG/ML INJ IM ONE (22:50)
[2023-12-18 22:56] VITALS: BP 173/67; PULSE 73; RESP 19
[2023-12-18 23:49] VITALS: O2SAT 98
== END 2023-12-18 23:56 | disposition home or self-care (01) ==
LOC: ER 22:00
DX: M25.512 Pain in left shoulder (principal); S42.292D Other displaced fracture of upper end of left humerus, subsequent encounter for fracture with routine healing; I10 Essential (primary) hypertension; E11.9 Type 2 diabetes mellitus without complications; E78.5 Hyperlipidemia, unspecified; F32.A Depression, unspecified; Z85.3 Personal history of malignant neoplasm of breast; Z96.651 Presence of right artificial knee joint
CPT/HCPCS: 73060; 73090; 99283; J1885; J2270

== ENCOUNTER 2023-12-21 12:26 | Emergency (ER) | payer MEDICARE ==
[~2023-12-21] VITALS: Ht 152.4 cm; Wt 52.2 kg
[~2023-12-21 12:26] MED LIST changes: -KETOROLAC TROMETHAMINE 30 MG/ML VIAL ONE; -Morphine 4mg INJECTION 4 MG/ML INJ ONE
[2023-12-21] MEDS: Morphine 4mg INJECTION 4 MG/ML INJ IV ONE (13:39)
[2023-12-21] MEDS: ONDANSETRON HCL INJ 2MG/ML 2ML 2 MG/ML VIAL IV STA (13:39)
[2023-12-21] MEDS ORDERED: SODIUM CHLORIDE 0.9% 1000ML 1,000 ML ONE (13:40)
[2023-12-21] MEDS: SODIUM CHLORIDE 0.9% 1000ML 1,000 ML IV ONE (13:40)
[2023-12-21] MEDS ORDERED: ONDANSETRON HCL INJ 2MG/ML 2ML 2 MG/ML VIAL ONE (13:40)
[2023-12-21] MEDS ORDERED: Morphine 4mg INJECTION 4 MG/ML INJ ONE (13:40)
[2023-12-21 13:58] LABS: BASOPHILS % 0.2 % (0.0-1.0); EOSINOPHILS % 0.2 % (0.0-6.0); HEMATOCRIT 33.8 % (34.2-44.1); HEMOGLOBIN 11.8 g/dL (12.0-16.0); LYMPHOCYTES # (AUTO) 1.1 (1.0-3.2); LYMPHOCYTES % 12.2 % (18.0-39.1); MEAN CORPUSCULAR HEMOGLOBIN 32.8 pg (28-32); MEAN CORPUSCULAR HGB CONC 34.9 g/dL (31-35); MEAN CORPUSCULAR VOLUME 93.9 fL (81-99); MONOCYTES # (AUTO) 0.5 (0.2-0.8); MONOCYTES % 5.5 % (4.4-11.3); NEUTROPHILS # (AUTO) 7.4 (2.1-6.9); NEUTROPHILS % 81.6 % (38.7-80.0); PLATELET COUNT 239 x10e3/uL (140-360); RED CELL DISTRIBUTION WIDTH 12.3 % (11.7-14.4); WHITE BLOOD COUNT 9.12 x10e3/uL (4.8-10.8)
[2023-12-21 14:03] LABS: INR 0.98; PROTHROMBIN TIME 13.7 seconds (11.9-14.5)
[2023-12-21 14:04] LABS: PARTIAL THROMBOPLASTIN TIME 24.1 seconds (23.8-35.5)
[2023-12-21 14:09] LABS: MAGNESIUM 1.5 MG/DL (1.3-2.1)
[2023-12-21 14:11] LABS: ALBUMIN 3.4 g/dL (3.5-5.0); ALBUMIN/GLOBULIN RATIO 1.2 (0.8-2.0); ANION GAP 20.3 mmol/L (8-16); BILIRUBIN,TOTAL 0.9 mg/dL (0.2-1.2); CREATININE, SERUM 1.2 mg/dL (0.57-1.11); POTASSIUM 4.3 mmol/L (3.5-5.1); TOTAL PROTEIN 6.3 g/dL (6.5-8.1)
[2023-12-21 14:17] LABS: TROPONIN I 0.007 ng/mL (0-0.300)
[2023-12-21] MEDS ORDERED: INSULIN REGULAR, HUMAN 100 UNIT/1 ML IV ONE ×2 (14:45→15:00)
[2023-12-21] MEDS ORDERED: METOPROLOL TARTRATE 25 MG TAB PO ONE (16:15)
[2023-12-21] MEDS ORDERED: METOPROLOL TARTRATE INJ 1 MG/ML VIAL ONE (16:25)
[2023-12-21 16:26] VITALS: BP 142/80; PULSE 126
[2023-12-21] MEDS: METOPROLOL TARTRATE INJ 1 MG/ML VIAL IV ONE (16:26)
[2023-12-21 16:28] VITALS: O2SAT 98
== END 2023-12-21 17:46 | disposition home or self-care (01) ==
LOC: ER 12:44
DX: Z47.89 Encounter for other orthopedic aftercare (principal); S42.292A Other displaced fracture of upper end of left humerus, initial encounter for closed fracture; E11.65 Type 2 diabetes mellitus with hyperglycemia; Z96.651 Presence of right artificial knee joint
CPT/HCPCS: 36415; 73060; 80053; 82550; 82948; 83735; 84484; 85025; 85610; 85730; 87040; 87071; 87205; 99284; J2270; J2405; J7030

== ENCOUNTER 2023-12-23 11:11 | Emergency (ER) | payer MEDICARE ==
[~2023-12-23] VITALS: Ht 152.4 cm; Wt 52.2 kg
[2023-12-23] MEDS ORDERED: CLINDAMYCIN HC150 MG PO (12:15)
[2023-12-23 12:36] VITALS: BP 171/58; PULSE 61; RESP 16; O2SAT 100
== END 2023-12-23 12:36 | disposition home or self-care (01) ==
LOC: ER 11:58
DX: Z47.89 Encounter for other orthopedic aftercare (principal); S42.292D Other displaced fracture of upper end of left humerus, subsequent encounter for fracture with routine healing; R78.81 Bacteremia; I10 Essential (primary) hypertension; E11.9 Type 2 diabetes mellitus without complications; E78.5 Hyperlipidemia, unspecified; F32.A Depression, unspecified; Z85.3 Personal history of malignant neoplasm of breast; Z96.651 Presence of right artificial knee joint
CPT/HCPCS: 87040; 99283